=== PATIENT | male | born 1950 | race Caucasian/White ===

== ENCOUNTER 2016-07-03 07:19 | Day surgery (SDC) | payer OTHER, MEDICARE ==
[2016-07-02 10:10] VITALS: BMI 55.3
[2016-07-03] MEDS ORDERED: PROPOFOL 20 ML ONE ×3 (07:58)
[2016-07-03] MEDS ORDERED: SUCCINYLCHOLINE CHLORIDE 200 MG/10 ML VIAL ONE (07:59)
[2016-07-03] MEDS ORDERED: TETRACAINE/BENZOCAINE/BUTAMBEN 20 GM SPR TP ONE (08:29)
[2016-07-03 08:56] VITALS: PULSE 79
[2016-07-03 10:30] VITALS: BP 134/77; TEMP 97.9
--- NOTE | 2016-07-07 13:01 | PATH ---
Surgical Pathology Report Patient Name: YADIRA RICHARDSON [facility]. Rec. #: [id number] /Age/Gender: 1950 (Age: 66) / M Account: [id number] Location: [facility]-ENDOSCOPY Taken: 07/03/2016 Received: 07/03/2016 Reported: 07/07/2016 Physicians: Abbi Khalil M.D. Specimen(s) Received A: BX 2ND PORTION DUODENUM & DUODENAL BULB B: BX ANTRUM C: BX GE JUNCTION D: BX MID ESOPHAGUS Clinical History Dysphagia, occult bleeding Hiatal hernia, GERD, gastritis, duodenitis Final Diagnosis A. DUODENUM, SECOND PORTION AND BULB, BIOPSY: DUODENAL MUCOSA WITH NO PATHOLOGIC CHANGES. NO HISTOLOGIC EVIDENCE OF GLUTEN SENSITIVE ENTEROPATHY (CELIAC SPRUE) IDENTIFIED. B. STOMACH, ANTRUM, BIOPSY: GASTRIC ANTRAL AND FUNDIC MUCOSA WITH MILD CHRONIC GASTRITIS. IMMUNOSTAIN FOR H. PYLORI IS NEGATIVE. C. GE JUNCTION, BIOPSY: SQUAMOUS MUCOSA WITH SUPERFICIAL ULCERATION, AND PAPILLOMATOSIS SUGGESTIVE OF REFLUX ESOPHAGITIS. NO INTESTINAL METAPLASIA IDENTIFIED (NO CHAND'S IDENTIFIED). FUNGAL STAIN (PAS) IS NEGATIVE. REACTIVE MULTINUCLEATE CELLS ARE PRESENT (See Comment) D. MID ESOPHAGUS, BIOPSY: SQUAMOUS ILEUM WITH PAPILLOMATOSIS SUGGESTIVE OF REFLUX ESOPHAGITIS, AND FOCAL ACUTE AND CHRONIC INFLAMMATION. NO EOSINOPHILIC ESOPHAGITIS IDENTIFIED. Comment: Immunohistochemical stains on Specimen C performed at [place], [place] ([id number]) and interpreted at [facility] show the following results: Immunostains for CMV, HSV-1, and HSV-2 are all negative. Electronically Signed Victor Manuel Vicente M.D. Gross Description A. Received in formalin, labeled "biopsy second portion of duodenum and duodenal bulb" are 5 carrillo, irregular portions of soft tissue ranging from 0.2-0.5 cm. in greatest dimension. The specimens are submitted in toto in one cassette. B. Received in formalin, labeled "biopsy antrum" are 3 carrillo, irregular portions of soft tissue ranging from 0.3-0.6 cm. in greatest dimension. The specimens are submitted in toto in one cassette. C. Received in formalin, labeled "biopsy GE junction" are 2 carrillo, irregular portions of soft tissue averaging 0.4 cm. in greatest dimension. The specimens are submitted in toto in one cassette. D. Received in formalin, labeled "biopsy midesophagus" are 3 carrillo, irregular portions of soft tissue ranging from less than 0.1-0.3 cm. in greatest dimension. The specimens are submitted in toto in one cassette. 07/03/201607/03/2016
== END 2016-07-03 09:30 | disposition home or self-care (01) ==
LOC: JASU-ENDO 07:19
PROVIDERS: ATTEND Internal Medicine Gastroenterology
PROC: 0DB98ZX Excision of Duodenum, Via Natural or Artificial Opening Endoscopic, Diagnostic (ICD-10-PCS; 2016-07-03)
PROC: 0DB68ZX Excision of Stomach, Via Natural or Artificial Opening Endoscopic, Diagnostic (ICD-10-PCS; 2016-07-03)
PROC: 0DB28ZX Excision of Middle Esophagus, Via Natural or Artificial Opening Endoscopic, Diagnostic (ICD-10-PCS; 2016-07-03)
PROC: 0DB38ZX Excision of Lower Esophagus, Via Natural or Artificial Opening Endoscopic, Diagnostic (ICD-10-PCS; principal; 2016-07-03 08:00)
DX: K21.0 Gastro-esophageal reflux disease with esophagitis (principal); K25.9 Gastric ulcer, unspecified as acute or chronic, without hemorrhage or perforation; K29.80 Duodenitis without bleeding
CPT/HCPCS: 88305-TC; 88312-TC; 88342-TC

== ENCOUNTER 2017-02-12 07:16 | Day surgery (SDC) | payer OTHER, MEDICARE ==
[2017-02-11 09:14] VITALS: BMI 52.0
[2017-02-12] MEDS ORDERED: SUCCINYLCHOLINE CHLORIDE 200 MG/10 ML VIAL ONE (07:57)
[2017-02-12] MEDS ORDERED: ePHEDrine SULFATE 50 MG/1 ML AMPULE ONE (07:57)
[2017-02-12] MEDS ORDERED: PROPOFOL 20 ML ONE ×3 (07:57)
[2017-02-12] MEDS ORDERED: PHENYLEPHRINE HCL 10 MG/1 ML SINGLE DOSE VIAL ONE (07:57)
[2017-02-12] MEDS ORDERED: GLYCOPYRROLATE 0.2 MG/1 ML VIAL ONE ×2 (07:57)
[2017-02-12] MEDS ORDERED: LIDOCAINE HCL/PF 2% SDV 5ML VIAL ONE (07:57)
[2017-02-12 08:45] VITALS: TEMP 98.5
[2017-02-12 08:58] VITALS: PULSE 77
[2017-02-12 09:33] VITALS: BP 110/72
--- NOTE | 2017-02-15 13:10 | PATH ---
Surgical Pathology Report Patient Name: YADIRA RICHARDSON [facility]. Rec. #: [id number] /Age/Gender: 1950 (Age: 66) / M Account: [id number] Location: [facility]-ENDOSCOPY Taken: 02/12/2017 Received: 02/12/2017 Reported: 02/15/2017 Physicians: Abbi Khalil M.D. Specimen(s) Received A: BX RIGHT COLON POLYPS x2 B: BX RECTAL POLYP Clinical History History of colon polyps Diverticulosis, colon polyp Final Diagnosis A. COLON, RIGHT, POLYP x2, BIOPSY/POLYPECTOMY: TUBULAR ADENOMA. SEPARATE FRAGMENTS OF SESSILE SERRATED ADENOMA. B. RECTUM, POLYP, BIOPSY: HYPERPLASTIC POLYP WITH SERRATED FEATURES. Electronically Signed Hudson Cardoza M.D. Gross Description A. Received in formalin, labeled "biopsy right colon polyp" are 4 carrillo, irregular portions of soft tissue ranging from 0.2-0.4 cm in greatest dimension. The specimens are submitted in toto in one cassette. B. Received in formalin, labeled "biopsy rectal polyp" is a carrillo, irregular portion of soft tissue measuring 0.3 cm in greatest dimension. The specimen is submitted in toto in one cassette. 02/12/201702/12/2017
== END 2017-02-12 09:50 | disposition home or self-care (01) ==
LOC: JASU-ENDO 07:16
PROVIDERS: ATTEND Internal Medicine Gastroenterology
PROC: 0DBP8ZX Excision of Rectum, Via Natural or Artificial Opening Endoscopic, Diagnostic (ICD-10-PCS; 2017-02-12)
PROC: 0DBK8ZX Excision of Ascending Colon, Via Natural or Artificial Opening Endoscopic, Diagnostic (ICD-10-PCS; principal; 2017-02-12 08:00)
DX: Z12.11 Encounter for screening for malignant neoplasm of colon (principal); Z86.010 Personal history of colon polyps; D12.2 Benign neoplasm of ascending colon; K62.1 Rectal polyp; K64.8 Other hemorrhoids; K57.30 Diverticulosis of large intestine without perforation or abscess without bleeding
CPT/HCPCS: 88305-TC

== ENCOUNTER 2020-02-21 04:45 | Day surgery (SDC) | payer OTHER, MEDICARE ==
[2020-02-21 08:16] VITALS: BMI 46.3
[2020-02-21] MEDS ORDERED: MIDAZOLAM HCL 2 MG/2 ML SINGLE DOSE VIAL ONE (08:36)
[2020-02-21 09:26] VITALS: TEMP 98.1
[2020-02-21 10:44] VITALS: BP 133/88; PULSE 69
--- NOTE | 2020-02-22 18:05 | PATH ---
Surgical Pathology Report Patient Name: YADIRA RICHARDSON [facility]. Rec. #: [id number] /Age/Gender: 1950 (Age: 69) / M Account: [id number] Location: [facility]-ENDOSCOPY Taken: 02/21/2020 Received: 02/21/2020 Reported: 02/22/2020 Physicians: Abbi Khalil M.D. Specimen(s) Received A: GASTRIC BODY POLYP B: GASTRIC FUNDUS GASTRITIS C: GE JUNCTION D: POLYPS RIGHT COLON Clinical History Acid reflux, adenoma surveillance Postoperative diagnosis: Gastritis, gastric polyps, hiatal hernia with GERD, right colon polyps, hemorrhoids, diverticulosis Final Diagnosis A. GASTRIC BODY, POLYP, BIOPSY: FUNDIC GLAND POLYP. IMMUNOHISTOCHEMICAL STAIN FOR H. PYLORI IS NEGATIVE. B. GASTRIC FUNDUS, GASTRITIS, BIOPSY: GASTRIC BODY MUCOSA WITH MILD CHRONIC GASTRITIS. IMMUNOHISTOCHEMICAL STAIN FOR H. PYLORI IS NEGATIVE. C. GE JUNCTION, BIOPSY: SQUAMOUS MUCOSA WITH MODERATE REFLUX TYPE ESOPHAGITIS. NO COLUMNAR MUCOSA, INTESTINAL METAPLASIA, OR DYSPLASIA IDENTIFIED. D. COLON, RIGHT, POLYPS, BIOPSY: TUBULAR ADENOMA(S). Positive and negative controls (internal if applicable) show appropriate results. Electronically Signed Luci Rodriguez M.D. Gross Description A. Received in formalin, labeled "biopsy gastric body polyp" is a carrillo, irregular portion of soft tissue measuring 0.3 cm. in greatest dimension. The specimen is submitted in toto in one cassette. B. Received in formalin, labeled "biopsy gastric fundus gastritis" is a carrillo, irregular portion of soft tissue measuring 0.3 cm. in greatest dimension. The specimen is submitted in toto in one cassette. C. Received in formalin, labeled "biopsy GE junction" are 3 carrillo, irregular portions of soft tissue ranging from 0.1-0.6 cm. in greatest dimension. The specimens are submitted in toto in one cassette. D. Received in formalin, labeled "biopsy polyps right colon" are 2 carrillo, irregular portions of soft tissue measuring 0.3 and 0.4 cm. in greatest dimension. The specimens are submitted in toto in one cassette. DL/02/21/2020 saudi/02/21/2020
== END 2020-02-21 10:46 | disposition home or self-care (01) ==
LOC: JASU-ENDO 04:45
PROVIDERS: ATTEND Internal Medicine Gastroenterology
PROC: 0DB48ZX Excision of Esophagogastric Junction, Via Natural or Artificial Opening Endoscopic, Diagnostic (ICD-10-PCS; 2020-02-21)
PROC: 0DB68ZX Excision of Stomach, Via Natural or Artificial Opening Endoscopic, Diagnostic (ICD-10-PCS; 2020-02-21)
PROC: 0DBK8ZX Excision of Ascending Colon, Via Natural or Artificial Opening Endoscopic, Diagnostic (ICD-10-PCS; principal; 2020-02-21 08:30)
DX: Z86.010 Personal history of colon polyps (principal); D12.2 Benign neoplasm of ascending colon; K57.30 Diverticulosis of large intestine without perforation or abscess without bleeding; K29.50 Unspecified chronic gastritis without bleeding; K44.9 Diaphragmatic hernia without obstruction or gangrene; K31.7 Polyp of stomach and duodenum; K21.0 Gastro-esophageal reflux disease with esophagitis
CPT/HCPCS: 88305-TC; 88342-TC

== ENCOUNTER 2024-01-13 14:48 | Inpatient (IN) | payer OTHER, MEDICARE ==
[2024-01-13] MEDS ORDERED: ACETAMINOPHEN INJECTION 100 ML IVPB ONE (15:50)
[2024-01-13] MEDS: ACETAMINOPHEN 1000 MG/100 ML BAG IVPB ONE (15:53)
[2024-01-13 16:00] LABS: HEMATOCRIT 38.1 % (35.4-49); HEMOGLOBIN 12.4 GM/dL (11.7-16.9); MCH 26.9 pg (25.7-33.7); MCHC 32.7 g/dl (32.0-35.9); MEAN CELL VOLUME 82.3 fl (80-96); MEAN PLT VOLUME 8.5 fl (7.5-11.1); PLATELET COUNT 344 10^3/uL (134-434); RBC 4.62 M/mm3 (4.00-5.60); RDW 15.2 % (11.9-15.9); WHITE BLOOD COUNT 20.3 K/mm3 (4.0-10.0)
[2024-01-13 16:09] LABS: POTASSIUM 3.8 mmol/L (3.5-5.1)
[2024-01-13 16:11] LABS: CALCIUM 8.3 mg/dL (8.5-10.1)
[2024-01-13 16:12] LABS: ALBUMIN 3.1 g/dl (3.4-5.0); BLOOD UREA NITROGEN 11.6 mg/dL (7-18)
[2024-01-13 16:17] LABS: TOT PROT 6.8 g/dl (6.4-8.2)
[2024-01-13 16:20] LABS: N-TERMINAL BNP 184.4 pg/ml (5-125)
[2024-01-13 16:28] LABS: ANISOCYTOSIS 0; MACROCYTOSIS 0
[2024-01-14 00:50] VITALS: BMI 49.4
[2024-01-14 06:16] LABS: EPI CELLS 4 /uL (0-25.1); HYALINE CASTS 0 /uL (0-3.1); PH,URINE 5.5 (5.0-8.0); URINE APPEARANCE CLEAR; URINE BACTERIA 5 /uL (0-1359); URINE BILIRUBIN NEGATIVE (NEGATIVE); URINE COLOR DK YELLOW; URINE GLUCOSE (UA) NEGATIVE (NEGATIVE); URINE KETONE NEGATIVE (NEGATIVE); URINE LEUK ESTERASE NEGATIVE (NEGATIVE); URINE NITRITE NEGATIVE (NEGATIVE); URINE PROTEIN NEGATIVE (NEGATIVE); URINE RBC 14 /uL (0-23.9); URINE WBC 8 /uL (0-25.8)
[2024-01-14] MEDS: FUROSEMIDE 40 MG TABLET (FP) PO SCH (06:50)
[2024-01-14] MEDS: BISACODYL 5 MG TABLET.DR (FP) PO PRN (09:35)
[2024-01-14] MEDS: ASPIRIN 81 MG CHEWABLE TABLETS PO SCH (09:35)
[2024-01-14] MEDS: metoPROLOL SUCCINATE 25 MG TAB.SR.24H (FP) PO SCH (09:35)
[2024-01-14] MEDS: METOPROLOL TARTRATE 5 MG/5 ML VIAL IVPUSH PRN (09:36)
[2024-01-14] MEDS: ENALAPRIL MALEATE 2.5 MG TABLET PO SCH (09:37)
[2024-01-14 10:12] LABS: HEMATOCRIT 35.8 % (35.4-49); HEMOGLOBIN 12.2 GM/dL (11.7-16.9); MCH 28.1 pg (25.7-33.7); MCHC 34.2 g/dl (32.0-35.9); MEAN CELL VOLUME 82.2 fl (80-96); MEAN PLT VOLUME 8.9 fl (7.5-11.1); PLATELET COUNT 363 10^3/uL (134-434); RBC 4.35 M/mm3 (4.00-5.60); RDW 15.4 % (11.9-15.9); WHITE BLOOD COUNT 21.4 K/mm3 (4.0-10.0)
[2024-01-14 10:30] LABS: POTASSIUM 3.7 mmol/L (3.5-5.1)
[2024-01-14 10:43] LABS: CALCIUM 8.5 mg/dL (8.5-10.1)
[2024-01-14 10:44] LABS: BLOOD UREA NITROGEN 16.6 mg/dL (7-18)
[2024-01-14 10:47] LABS: CREATININE 1.1 mg/dL (0.55-1.3)
[2024-01-14 11:05] LABS: ANISOCYTOSIS 0; MACROCYTOSIS 0
[2024-01-14 11:07] LABS: PLATELET ESTIMATE ADEQUATE
[2024-01-14] MEDS: metoPROLOL SUCCINATE 25 MG TAB.SR.24H (FP) PO ONE (14:46)
[2024-01-14] MEDS: ENOXAPARIN NA (PORCINE) 120 MG/0.8 ML DISP.SYRIN SQ SCH (14:46)
[2024-01-14] MEDS: FUROSEMIDE 40 MG/4 ML INJECTABLE VIAL IVPUSH SCH (14:46)
[2024-01-14] MEDS: POLYETHYLENE GLYCOL (HEALTHYLAX) 3350 17 GM PACKET PO SCH (14:46)
[2024-01-14] MEDS ORDERED: HEPARIN NA (PORCINE) 5,000 UNITS/ML 1ML VIAL IVPUSH PRN ×2 (22:21)
[2024-01-14] MEDS ORDERED: HEPARIN INFUSION - 25,000 UNITS/500 ML INFUS.BAG IVPB SCH (22:30)
[2024-01-14] MEDS ORDERED: AMIODARONE IN DEXTROSE,ISO-OSM 150 MG/100 ML BAG ONE (22:41)
[2024-01-14 23:08] LABS: HEMOGLOBIN 12.1 GM/dL (11.7-16.9); MCH 27.6 pg (25.7-33.7); MCHC 33.5 g/dl (32.0-35.9); MEAN CELL VOLUME 82.4 fl (80-96); MEAN PLT VOLUME 8.9 fl (7.5-11.1); PLATELET COUNT 378 10^3/uL (134-434); RBC 4.37 M/mm3 (4.00-5.60); WHITE BLOOD COUNT 23.1 K/mm3 (4.0-10.0)
[2024-01-14 23:15] LABS: INR 1.45 (0.83-1.09); PROTHROMBIN TIME (PATIENT) 16.2 SEC (9.7-13.0)
[2024-01-14 23:18] LABS: ACTIVATED PTT 39.8 SECONDS (25.2-36.5)
[2024-01-14 23:28] LABS: POTASSIUM 3.7 mmol/L (3.5-5.1)
[2024-01-14 23:30] LABS: ALBUMIN 2.9 g/dl (3.4-5.0); BLOOD UREA NITROGEN 25.8 mg/dL (7-18); CALCIUM 8.5 mg/dL (8.5-10.1)
[2024-01-14 23:31] LABS: MAGNESIUM 2.1 mg/dL (1.8-2.4)
[2024-01-14 23:34] LABS: CREATININE 1.6 mg/dL (0.55-1.3); PHOSPHOROUS 3.5 mg/dL (2.5-4.9)
[2024-01-14] MEDS: AMIODARONE IN DEXTROSE,ISO-OSM 150 MG/100 ML BAG IVPB ONE (23:34)
[2024-01-14 23:35] LABS: BILIRUBIN,TOTAL 1.2 mg/dL (0.2-1); TOT PROT 6.6 g/dl (6.4-8.2)
[2024-01-14] MEDS: NOREPINEPHRINE BITARTRATE 4,000 MCG in DEXTROSE 5%-WATER - 496 ML IV SCH (23:35)
[2024-01-14 23:37] LABS: LACTIC ACID 2.2 mmol/L (0.4-2.0)
[2024-01-14] MEDS: AMIODARONE IN DEXTROSE,ISO-OSM 360 MG/200 ML BAG IV SCH (23:39)
[2024-01-14] MEDS: ATORVASTATIN CA 10 MG TABLET (FP) PO SCH (23:40)
[2024-01-14] MEDS: PIPERACILLIN/TAZOB 4.5 GM 4.5 GM in DEXTROSE 5%-WATER 100 ML IVPB ONE (23:46)
[2024-01-14] MEDS: KCL 10 MEQ IVPB 10 MEQ/100 ML INFUS.BAG IVPB SCH (23:46)
[2024-01-15 00:11] LABS: ANISOCYTOSIS 0; MACROCYTOSIS 0; PLATELET ESTIMATE ADEQUATE
[2024-01-15 00:56] VITALS: BP 99/76; PULSE 85; RESP 20; TEMP 98
[2024-01-15] MEDS ORDERED: AMIODARONE IN DEXTROSE,ISO-OSM 360 MG/200 ML BAG IV SCH (05:41)
[2024-01-15] MEDS ORDERED: metoPROLOL SUCCINATE 25 MG TAB.SR.24H (FP) PO SCH (10:00)
== END 2024-01-15 00:55 | disposition short-term general hospital (02) | DRG 314 ==
LOC: JER 14:48 → JERBED 19:17 → J4S 21:02 → OBSVTOIN 01-14 11:05 → JICU 01-14 22:06
PROVIDERS: ADMIT Internal Medicine; ATTEND Internal Medicine
DX: I31.39 Other pericardial effusion (noninflammatory) (principal); I50.33 Acute on chronic diastolic (congestive) heart failure; Z68.42 Body mass index [BMI] 45.0-49.9, adult; E78.5 Hyperlipidemia, unspecified; N40.0 Benign prostatic hyperplasia without lower urinary tract symptoms; K21.9 Gastro-esophageal reflux disease without esophagitis; R07.89 Other chest pain; I11.0 Hypertensive heart disease with heart failure; K59.00 Constipation, unspecified; E66.01 Morbid (severe) obesity due to excess calories; I48.91 Unspecified atrial fibrillation; R00.0 Tachycardia, unspecified; I25.10 Atherosclerotic heart disease of native coronary artery without angina pectoris; R09.02 Hypoxemia; I31.4 Cardiac tamponade
CPT/HCPCS: 0241U-QW; 36415; 71046-TC-FY; 71250-TC; 80048; 80053; 81003; 82550; 83605; 83735; 83880; 84100; 84439; 84443; 84484; 85025; 85379; 85384; 85610; 85730; 87040; 87086; 93005; 93010; 93306-TC; 99285-25; G0378; J0131; J0282